=== PATIENT | female | born 1995 | race Two or more races ===

== ENCOUNTER → 2017-02-21 | Outpatient (CLI) | payer MEDICAID | LOC: FIMAGING 14:03 | PROVIDERS: ATTEND Obstetrics & Gynecology | DX: R10.2 Pelvic and perineal pain (principal); Z97.5 Presence of (intrauterine) contraceptive device ==

== ENCOUNTER 2017-03-28 07:10 | Day surgery (SDC) | payer MEDICAID ==
[2017-03-28] MEDS ORDERED: NALOXONE HCL 0.4 MG/ML INJ ONE (07:25)
[2017-03-28] MEDS ORDERED: FLUMAZENIL 0.5 MG/5 ML MDV IVP ONE (07:25)
[2017-03-28] MEDS ORDERED: fentaNYL 100 MCG/2 ML INJ ONE (07:25)
[2017-03-28] MEDS ORDERED: MIDAZOLAM 2 MG/2 ML VIAL ONE (07:26)
[2017-03-28] MEDS ORDERED: NS 1,000 ML IV SCH (07:30)
[2017-03-28 08:07] LABS: PROTIME(PATIENT) 13.1 SEC (12.0-15.0)
[2017-03-28 08:08] LABS: APTT 28.3 SEC (23.0-38.0)
[2017-03-28] MEDS ORDERED: SODIUM TETRADECYL SULFATE 60 MG/2 ML VIAL IV ONE (08:15)
[2017-03-28 08:16] LABS: ANION GAP 9 mEq/L (8-16); CALCIUM 6.7 mg/dL (8.5-10.4); CARBON DIOXIDE 19 mEq/l (22-31); CHLORIDE 117 mEq/L (97-110); CREATININE 0.5 mg/dL (0.6-1.0); GLOMERULAR FILTRATION RATE > 60; GLUCOSE 70 mg/dL (70-100); SODIUM 145 mEq/L (134-144)
[2017-03-28] MEDS ORDERED: PROMETHAZINE HCL 25 MG/ML INJ ONE (08:56)
[2017-03-28] MEDS ORDERED: IOPAMIDOL (ISOVUE-300) 100 ML BTL IV ONE ×2 (10:02→10:51)
[2017-03-28] MEDS ORDERED: ACETAMINOPHEN 325 MG TAB ONE (11:38)
== END 2017-03-28 12:30 | disposition home or self-care (01) ==
LOC: FIMAGING 07:10
PROVIDERS: ATTEND Radiology Diagnostic Radiology
DX: I86.2 Pelvic varices (principal); R10.2 Pelvic and perineal pain
CPT/HCPCS: 36011; 37241; 75736; 99152; 99153; C1769; C1892; J1644; J2250; J2310; J2550; J3010; Q9967

== ENCOUNTER → 2017-04-22 | Outpatient (CLI) | payer MEDICAID ==
[~2017-04-22] MED LIST: IOPAMIDOL (ISOVUE 370) 100 ML BTL IV ONE
== END ==
LOC: FIMAGING 08:34
PROVIDERS: ATTEND Radiology Diagnostic Radiology
DX: R10.2 Pelvic and perineal pain (principal); Z97.5 Presence of (intrauterine) contraceptive device
CPT/HCPCS: Q9967